=== PATIENT | female | born 1980 | race Caucasian/White ===

== ENCOUNTER 2018-07-22 18:26 | Emergency (ER) | payer SELFPAY ==
--- NOTE | 2018-07-22 18:37 | ED Physician Documentation ---
Fall - HISTORIAN Historian: patient - HPI Stated Complaint: fall Chief Complaint: Fall Additional Information: Patient presents to ED via EMS after falling off a trailer and landing on the hitch. 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 She was jumping up and down on the trailer tongue to get the trailer to hitch on to the truck when she slipped and fell onto the trailer tongue and truck hitch. EMS transported patient with c-collar on back board. She complains of low back pain(9/10) and left lateral neck pain (7/10). She denies hitting her head or loss of consciousness. She has some nausea in ED. Onset: just prior to arrival Where: other ([employer] parking lot) Context: other (fell from utility trailer landing on trailer hitch) r: moderate Associated Symptoms:: no loss of consciousness Location of Pain/Injury: neck, mid back, lower back Injury to Right Extremity: none Injury to Left Extremity: none - ROS CONST: no problems NEURO: dizziness MS/SKIN/LYMPH: neck pain. denies: weakness EYES/ENT: denies: problems with vision CVS/RESP: denies: chest pain, shortness of breath GI/: denies: nausea, vomiting - PAST HX Past History: diabetes Type 2 Allergies/Adverse Reactions: Allergies Allergy/AdvReac Type Severity Reaction Status Date / Time NSAIDS (Non-Steroidal AdvReac Eye Itching Verified 07/22/18 18:46 Anti-Inflamma Home Medications: Ambulatory Orders Medication Instructions Recorded Cyclobenzaprine HCl [Flexeril] 10 mg PO TID PRN #30 tablet 07/22/18 Metformin HCl [Glucophage] 1 tab PO BID 07/22/18 traMADol HCL [Ultram] 50 mg PO TID PRN #10 tablet 07/22/18 - SOCIAL HX Smoking History: non-smoker Alcohol Use: none Drug Use: none - FAMILY HX Family History: none - REVIEWED ASSESSMENTS Nursing Assessment Reviewed: Yes Vitals Reviewed: Yes ED Results Lab/Radiology - Radiology Radiology Impressions: Examination: CT cervical spine History: NECK PAIN AFTER FALL TODAY (Hx) Comparison exams: None provided Technique: CT cervical spine axial imaging with sagittal and coronal reconstruct ion Findings: Sagittal reconstruction demonstrates normal height and alignment the cervical vertebral bodies. No anterior compression deformity. Coronal reconstruction does not demonstrate locked or perched facets. No atlantoaxial abnormality. Streak artifact from dental hardware. Axial imaging obtained from the skull base through T1 Lamina and pedicles are intact. No ossific density within the central canal. No prevertebral soft tissue abnormality. Impression: No evidence for vertebral body compression fracture Electronically signed on Jul 22, 2018 7:30:40 PM SET STAFF FITTER by: Dhaval Lima Examination: CT thoracic spine History: Back PAIN AFTER FALL TODAY (Hx) Comparison exams: None provided Technique: CT thoracic spine axial imaging with sagittal and coronal reconstruction Findings: Sagittal reconstruction demonstrates normal height and alignment the thoracic vertebral bodies. No anterior compression deformity. Scattered anterior and posterior osteophytes. Coronal reconstruction does not demonstrate locked or perched facets. Lung base dependent atelectasis. Axial imaging obtained from C7 through L1 Lamina and pedicles are intact. No ossific density within the central canal. No prevertebral soft tissue abnormality. Impression: Scattered degenerative changes. No evidence for vertebral body compression fracture Electronically signed on Jul 22, 2018 7:34:27 PM SET STAFF FITTER by: Dhaval Lima CT lumbar spine History: Low back pain after falling on a trailer hitch today Technique: Helically acquired images were obtained through the lumbosacral spine. Sagittal and coronal reconstructions were performed. Findings: There is no evidence for acute fracture. There is vacuum joint phenomenon involving the SI joints bilaterally. No erosive findings are noted of the SI joints. No significant disc abnormalities are appreciated. There is no central stenosis. The neural foramina are patent. Impression: No evidence for acute fracture. There is vacuum joint phenomenon involving the SI joints bilaterally. 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 SPECIALIST Head: non-tender Neck: decreased ROM Eye: ANDREY, EOMI ENT: nml external inspection Resp/CVS: chest non-tender, breath sounds nml, heart sounds nml Abdomen: soft, normal bowel sounds Neuro: oriented x3 Skin: color nml Back: normal inspection Extremities: pelvis stable, hips non-tender - Willard Coma Score Eyes Open: Spontaneous Speech: Oriented Motor: Obeys Commands Discharge Clincal Impression: Fall Qualifiers: Encounter type: initial encounter Qualified Code(s): W19.XXXA - Unspecified fall, initial encounter Prescriptions: Cyclobenzaprine HCl [Flexeril] 10 mg PO TID PRN #30 tablet PRN Reason: Spasms traMADol HCL [Ultram] 50 mg PO TID PRN #10 tablet PRN Reason: Pain Referrals: Primary Doctor,No [Primary Care Provider] - 2 Days Additional Instructions: 1. Apply ICE to affected area as needed 2. Tylenol as needed for pain 3. Follow up with PCP within 1 week. Condition: Stable Disposition: 01 HOME, SELF-CARE Decision to Admit: NO Date of Decison to Admit: 07/22/18 Decision Time: 20:10
[2018-07-22] MEDS: MORPHINE SULFATE 4 MG/ML PREFILLED SYR IM ONE (18:40)
[2018-07-22] MEDS: ONDANSETRON HCL 4 MG TAB.RAPDIS PO ONE (18:42)
[2018-07-22 18:46] VITALS: BP 182/108
[2018-07-22] MEDS: ORPHENADRINE CITRATE 60 MG/2ML IM ONE (19:50)
[2018-07-22] MEDS: PROMETHAZINE HCL 25 MG TABLET PO ONE (19:50)
[2018-07-22] MEDS: ONDANSETRON HCL 4 MG TAB.RAPDIS ONE (19:50)
--- NOTE | 2018-07-22 20:12 | Diagnostic Imaging Report ---
BROOKLYNN JIN [facility] [address] [facility] [address] [place], [place]. [address] Report Submission Date: Jul 22, 2018 7:30:40 PM TOOL DESIGN ENGINEER Patient Study Name: ODESSA NICHOLSON Date: Jul 22, 2018 6:53:34 PM TOOL DESIGN ENGINEER Modality Type: CT\SR Gender: F Description: CT C-SPINE W/O CONTRAS : 76 Institution: [facility] Physician: BROOKLYNN JIN Examination: CT cervical spine History: NECK PAIN AFTER FALL TODAY (Hx) Comparison exams: None provided Technique: CT cervical spine axial imaging with sagittal and coronal reconstruction Findings: Sagittal reconstruction demonstrates normal height and alignment the cervical vertebral bodies. No anterior compression deformity. Coronal reconstruction does not demonstrate locked or perched facets. No atlantoaxial abnormality. Streak artifact from dental hardware. Axial imaging obtained from the skull base through T1 Lamina and pedicles are intact. No ossific density within the central canal. No prevertebral soft tissue abnormality. Impression: No evidence for vertebral body compression fracture Electronically signed on Jul 22, 2018 7:30:40 PM TOOL DESIGN ENGINEER by: Dhaval SCHREIBER
--- NOTE | 2018-07-22 20:13 | Diagnostic Imaging Report ---
BROOKLYNN JIN [facility] [address] [facility] [address] [place], [place]. [address] Report Submission Date: Jul 22, 2018 7:31:46 PM SCIENTIST PROPAGATOR Patient Study Name: ODESSA NICHOLSON Date: Jul 22, 2018 7:01:54 PM SCIENTIST PROPAGATOR Modality Type: CT\SR Gender: F Description: CT L-SPINE W/O CONTRAS : 76 Institution: [facility] Physician: BROOKLYNN JIN CT lumbar spine History: Low back pain after falling on a trailer hitch today Technique: Helically acquired images were obtained through the lumbosacral spine. Sagittal and coronal reconstructions were performed. Findings: There is no evidence for acute fracture. There is vacuum joint phenomenon involving the SI joints bilaterally. No erosive findings are noted of the SI joints. No significant disc abnormalities are appreciated. There is no central stenosis. The neural foramina are patent. Impression: No evidence for acute fracture. There is vacuum joint phenomenon involving the SI joints bilaterally. Electronically signed on Jul 22, 2018 7:31:46 PM SCIENTIST PROPAGATOR by: Valerie SCHREIBER
--- NOTE | 2018-07-22 20:14 | Diagnostic Imaging Report ---
BROOKLYNN JIN [facility] [address] [facility] [address] [place], [place]. [address] Report Submission Date: Jul 22, 2018 7:34:27 PM STATION ENGINEER Patient Study Name: ODESSA NICHOLSON Date: Jul 22, 2018 6:57:51 PM STATION ENGINEER Modality Type: CT\SR Gender: F Description: CT T-SPINE W/O CONTRAS : 76 Institution: [facility] Physician: BROOKLYNN JIN Examination: CT thoracic spine History: Back PAIN AFTER FALL TODAY (Hx) Comparison exams: None provided Technique: CT thoracic spine axial imaging with sagittal and coronal reconstruction Findings: Sagittal reconstruction demonstrates normal height and alignment the thoracic vertebral bodies. No anterior compression deformity. Scattered anterior and posterior osteophytes. Coronal reconstruction does not demonstrate locked or perched facets. Lung base dependent atelectasis. Axial imaging obtained from C7 through L1 Lamina and pedicles are intact. No ossific density within the central canal. No prevertebral soft tissue abnormality. Impression: Scattered degenerative changes. No evidence for vertebral body compression fracture Electronically signed on Jul 22, 2018 7:34:27 PM STATION ENGINEER by: Dhaval SCHREIBER
== END 2018-07-22 20:25 | disposition home or self-care (01) ==
LOC: ED 18:26
DX: M54.5 Low back pain (principal); M54.2 Cervicalgia; W17.89XA Other fall from one level to another, initial encounter; Y93.89 Activity, other specified; Y92.481 Parking lot as the place of occurrence of the external cause
CPT/HCPCS: 72125; 72128; 72131; 96372; 99284; 99285; J2270; A9270; J2360